=== PATIENT | male | born 1955 | race Hispanic/Latino ===

== ENCOUNTER → 2018-11-27 | Outpatient (REF) | END | disposition home or self-care (01) | DRG 951 | LOC: PAGE 09:00 | PROVIDERS: ATTEND Nurse Practitioner Family | DX: Z02.1 Encounter for pre-employment examination (principal); Z02.83 Encounter for blood-alcohol and blood-drug test ==

== ENCOUNTER 2022-09-07 15:29 | Observation (INO) | payer MEDICARE ==
[2022-09-07] VITALS (32 sets, daily range): BP systolic 104–148; BP diastolic 57–82
[~2022-09-07] VITALS: Ht 172.7 cm; Wt 109.0 kg
[~2022-09-07 15:29] MED LIST: GLIMEPIRIDE2 MG PO; LASIX 40 MG TAB40 MG PO; SPIRONOLACTONE50 MG PO; ZESTRIL10 M1 PO
--- NOTE | 2022-09-07 15:35 | NUR ---
PATIENT TO ROOM VIA WHEELCHAIR
--- NOTE | 2022-09-07 16:10 | NUR ---
PATIENT MEDICATED PER MD ORDER
[2022-09-07 16:20] LABS: HEMATOCRIT 24.4 % (39.0-50.0); HEMOGLOBIN 8.2 g/dl (14.0-18.0); IMMATURE GRANULOCYTES 0.2 % (0.0-5.0); MEAN CELL VOLUME 109.4 fL CALC (80.0-100.0); MEAN CORPUSCULAR HGB 36.8 pG CALC (26.0-32.0); MEAN CORPUSCULAR HGB CONC 33.6 g/dL CAL (32.0-36.0); NEUT# 3.55 thou/uL (1.82-7.42); RED BLOOD COUNT 2.23 mill/uL (4.70-6.10); RED CELL DISTRI WIDTH 14.8 % (11.5-15.5)
[2022-09-07 16:26] LABS: ALBUMIN 2.5 g/dL (3.2-5.0); BILIRUBIN, TOTAL 2.9 mg/dL (0.0-1.4); CREATININE 1.8 mg/dL (0.7-1.3); POTASSIUM 4.6 mmol/l (3.5-5.1); TOTAL PROTEIN 6.6 g/dL (6.3-8.2)
--- NOTE | 2022-09-07 17:10 | NUR ---
PATIENT RETURNS FROM CT IN STABLE CONDITION.
--- NOTE | 2022-09-07 17:53 | NUR ---
PATIENT RESTING ON STRETCHER, DENIES ANY PAIN. REQUESTING TO STAY AT [facility] FOR THE CRIM[facility]ALLY INSANE FOR PROCEDURE
--- NOTE | 2022-09-07 18:15 | NUR ---
MD AT BEDSIDE TO DISCUSS RESULTS AND ADMIT
--- NOTE | 2022-09-07 19:00 | NUR ---
REPORT GIVEN TO IMANI BARRAZA
--- NOTE | 2022-09-07 22:53 | NUR ---
REPORT GIVEN TO MS braden
--- NOTE | 2022-09-07 23:31 | NUR ---
REPORT GIVEN TO MS RN. PT IN NAD, UPDATED ON PLAN OF CARE.
[2022-09-07 23:44] LABS: URINE BILIRUBIN - DIPSTICK NEGATIVE (NEGATIVE); URINE BLOOD DIPSTICK NEGATIVE (NEGATIVE); URINE COLOR YELLOW; URINE GLUCOSE - DIPSTICK NEGATIVE (NEGATIVE); URINE KETONE NEGATIVE (NEGATIVE); URINE LEUK ESTERASE NEGATIVE (NEGATIVE); URINE PH 5.5 (4.5-8.0); URINE PROTEIN - DIPSTICK NEGATIVE (NEG-TRACE); URINE UROBILINOGEN - DIPSTICK 0.2 E.U./dL (0.2)
[2022-09-07 23:48] LABS: URINE NITRITE - DIPSTICK NEGATIVE (Negative)
[2022-09-08] VITALS: BP 124/79
[2022-09-08 04:00] VITALS: BP 124/79
--- NOTE | 2022-09-08 04:53 | NUR ---
PATIENT REMAINS RESTING IN BED ON HIS RIGHT SIDE WITH EYES CLOSED. NO SIGNS OF DISTRESS. NO COMPLAINTS OF PAIN. BED REMAINS IN LOW POSITION. CALL LIGHT IN REACH.
[2022-09-08 05:42] LABS: HEMATOCRIT 21.7 % (39.0-50.0); HEMOGLOBIN 7.5 g/dl (14.0-18.0); MEAN CELL VOLUME 107.4 fL CALC (80.0-100.0); MEAN CORPUSCULAR HGB 37.1 pG CALC (26.0-32.0); MEAN CORPUSCULAR HGB CONC 34.6 g/dL CAL (32.0-36.0); RED BLOOD COUNT 2.02 mill/uL (4.70-6.10); RED CELL DISTRI WIDTH 14.7 % (11.5-15.5)
[2022-09-08 06:03] LABS: INTERNATIONAL NORMALIZED RATIO 1.4 RATIO (0.7-1.3); PROTHROMBIN TIME 13.6 SECONDS (9.0-12.5)
[2022-09-08 06:06] LABS: BILIRUBIN, TOTAL 2.9 mg/dL (0.0-1.4); CREATININE 1.9 mg/dL (0.7-1.3); MAGNESIUM 2.2 mg/dL (1.6-2.3); POTASSIUM 4.6 mmol/l (3.5-5.1); TOTAL PROTEIN 5.9 g/dL (6.3-8.2)
[2022-09-08 06:52] VITALS: BP 108/60
--- NOTE | 2022-09-08 08:00 | NUR ---
RECEIVED REPORT FROM [employer] TECHNICIAN. PATIENT RESTINGIN IN BED, AWAKE, IN SEMI-FOLWERS POSITION. PT A&OX3 AND ABLE TO MAKE NEEDS KNOWN. NO SIGNS OF DISNTRESS NOTED NOR VERBALIZED AT THIS TIME. PATIENT DID STATE HAVING LITTLE PAIN ON LEFT FOOT BUT DENIED PAIN MEDICATION. ASSESSMENT COMPLETED. IV PATENT AND FLUSHES WELL. CALL LIGHT AND BEDSIDE TABLE WITHIN REACH.
[2022-09-08 10:58] VITALS: BP 105/58
[2022-09-08 10:59] VITALS: BP 105/58
--- NOTE | 2022-09-08 12:00 | NUR ---
PATIENT RESTING IN BED IN SEMI FOWLERS POSITION, AWAKE, WATCHING TV. SPOUSE IS IN THE ROOM. NO SIGNS OF DISTRESS NOTED NOR VERBALIZED AT THIS TIME. CALL LIGHT AND BEDSIDE TABLE WITHIN REACH.
[2022-09-08] MEDS ORDERED: LACTULOSE10 GM/15 M PO (13:14)
--- NOTE | 2022-09-08 16:08 | NUR ---
Discharge instructions given. Patient verbalizes understanding of same. Discharged in stable condition via Wheelchair to Home with staff. All belongings sent with pt.
--- NOTE | 2022-09-08 18:07 | NUR ---
RECEIVED REPORT FROM PAN SHOVER RN. PATIENT IS RESTING IN BED, AWAKE. SPOUSE AT BEDSIDE. PATIENT IS A&OX3 AND ABLE TO MAKE NEEDS KNOWN, NO SIGNS OF DISTRESS NOTED NOR VERBALIZED AT THIS TIME. IV IS PATENT AND FLUSHES WELL. ASSESSMENT COMPLETED. BED IN LOWEST POSITION, CALL LIGHT AND BEDSIDE TABLE WITHIN REACH.
[2022-09-08 19:00] VITALS: BP 105/58
== END 2022-09-08 16:07 | disposition home or self-care (01) ==
LOC: ED 15:29 → ED-I 18:32 → ED 18:44 → MS2 18:45
PROVIDERS: Internal Medicine; ADMIT Internal Medicine; ATTEND Internal Medicine
PROC: 0W9G3ZZ Drainage of Peritoneal Cavity, Percutaneous Approach (ICD-10-PCS; principal; 2022-09-08)
DX: K74.60 Unspecified cirrhosis of liver (principal); R18.8 Other ascites; K76.7 Hepatorenal syndrome; I10 Essential (primary) hypertension; E11.9 Type 2 diabetes mellitus without complications; Z20.822 Contact with and (suspected) exposure to COVID-19; Z01.818 Encounter for other preprocedural examination; U07.1 COVID-19; K70.31 Alcoholic cirrhosis of liver with ascites
CPT/HCPCS: P9047

== ENCOUNTER 2022-09-13 22:13 | Inpatient (IN) | payer MEDICARE ==
[~2022-09-13] VITALS: Ht 30.5 cm; Wt 99.8 kg
[~2022-09-13 22:13] MED LIST changes: +LACTULOSE10 GM/15 M PO
[2022-09-13 22:25] VITALS: BP 140/81
[2022-09-13 22:31] VITALS: BP 113/64
[2022-09-13 23:00] VITALS: BP 128/70
[2022-09-13 23:10] LABS: HEMATOCRIT 27.5 % (39.0-50.0); HEMOGLOBIN 9.3 g/dl (14.0-18.0); IMMATURE GRANULOCYTES 0.4 % (0.0-5.0); MEAN CELL VOLUME 108.3 fL CALC (80.0-100.0); MEAN CORPUSCULAR HGB 36.6 pG CALC (26.0-32.0); MEAN CORPUSCULAR HGB CONC 33.8 g/dL CAL (32.0-36.0); NEUT# 2.99 thou/uL (1.82-7.42); RED BLOOD COUNT 2.54 mill/uL (4.70-6.10)
[2022-09-13 23:15] VITALS: BP 121/68
[2022-09-13 23:25] LABS: INTERNATIONAL NORMALIZED RATIO 1.3 RATIO (0.7-1.3); PROTHROMBIN TIME 12.8 SECONDS (9.0-12.5)
[2022-09-13 23:26] LABS: ALKALINE PHOSPHATASE 651 u/l (38-126); AMYLASE 138 u/l (30-110); ANION GAP 15 (6-22 (CALC)); BILIRUBIN, TOTAL 2.9 mg/dL (0.0-1.4); BUN 27 mg/dL (8-23); BUN/CREATININE RATIO 12 (12-20 (CALC)); CARBON DIOXIDE 17 mmol/l (22-30); CHLORIDE 106 mmol/l (95-108); CREATININE 2.3 mg/dL (0.7-1.3); GFR FOR AFR.AMER. 34 ML/MIN (>=60 (CALC)); GFR OTHER RACES 28 ML/MIN (>=60 (CALC)); LIPASE 506 u/l (23-300); POTASSIUM 4.6 mmol/l (3.5-5.1); SGOT/AST 59 u/l (19-48); SODIUM 134 mmol/l (137-146)
[2022-09-13 23:27] LABS: ALBUMIN 2.7 g/dL (3.2-5.0); TOTAL PROTEIN 7.1 g/dL (6.3-8.2)
[2022-09-13 23:30] VITALS: BP 117/64
[2022-09-13 23:38] LABS: MYOGLOBIN 198 ng/mL (0 - 121)
[2022-09-14 02:50] LABS: URINE BILIRUBIN - DIPSTICK NEGATIVE (NEGATIVE); URINE BLOOD DIPSTICK NEGATIVE (NEGATIVE); URINE COLOR YELLOW; URINE GLUCOSE - DIPSTICK NEGATIVE (NEGATIVE); URINE KETONE TRACE mg/dL (NEGATIVE); URINE LEUK ESTERASE NEGATIVE (NEGATIVE); URINE PH 5.5 (4.5-8.0); URINE PROTEIN - DIPSTICK NEGATIVE (NEG-TRACE); URINE SPECIFIC GRAVITY 1.025; URINE UROBILINOGEN - DIPSTICK 0.2 E.U./dL (0.2)
[2022-09-14 02:51] LABS: URINE NITRITE - DIPSTICK NEGATIVE (Negative)
[2022-09-14 07:06] VITALS: BP 117/50
[2022-09-14 11:06] VITALS: BP 110/48
[2022-09-14 14:48] VITALS: BP 99/52
[2022-09-14 18:56] VITALS: BP 95/48
[2022-09-15] VITALS (11 sets, daily range): BP systolic 92–115; BP diastolic 43–61
[2022-09-15 06:26] LABS: IMMATURE GRANULOCYTES 0.1 % (0.0-5.0); MEAN CELL VOLUME 106.3 fL CALC (80.0-100.0); MEAN CORPUSCULAR HGB 36.5 pG CALC (26.0-32.0); MEAN CORPUSCULAR HGB CONC 34.3 g/dL CAL (32.0-36.0); NEUT# 4.84 thou/uL (1.82-7.42); RED BLOOD COUNT 1.92 mill/uL (4.70-6.10); RED CELL DISTRI WIDTH 14.9 % (11.5-15.5)
[2022-09-15 06:35] LABS: BILIRUBIN, TOTAL 2.7 mg/dL (0.0-1.4); CREATININE 2.6 mg/dL (0.7-1.3)
[2022-09-15 06:38] LABS: POTASSIUM 4.4 mmol/l (3.5-5.1)
[2022-09-15 06:42] LABS: ALBUMIN 2.1 g/dL (3.2-5.0); TOTAL PROTEIN 5.1 g/dL (6.3-8.2)
[2022-09-15 06:48] LABS: HEMATOCRIT 20.4 % (39.0-50.0)
[2022-09-16] VITALS (7 sets, daily range): BP systolic 83–116; BP diastolic 41–66
[2022-09-16 05:28] LABS: HEMATOCRIT 21.7 % (39.0-50.0); HEMOGLOBIN 7.6 g/dl (14.0-18.0); MEAN CELL VOLUME 102.8 fL CALC (80.0-100.0); RED BLOOD COUNT 2.11 mill/uL (4.70-6.10); RED CELL DISTRI WIDTH 16.9 % (11.5-15.5)
[2022-09-16 05:44] LABS: ALBUMIN 1.9 g/dL (3.2-5.0); BILIRUBIN, TOTAL 2.6 mg/dL (0.0-1.4); CREATININE 2.8 mg/dL (0.7-1.3); POTASSIUM 4.6 mmol/l (3.5-5.1); TOTAL PROTEIN 4.9 g/dL (6.3-8.2)
[2022-09-16 05:49] LABS: INTERNATIONAL NORMALIZED RATIO 1.5 RATIO (0.7-1.3); PROTHROMBIN TIME 14.6 SECONDS (9.0-12.5)
[2022-09-17 04:05] VITALS: BP 116/63
[2022-09-17 05:41] LABS: HEMATOCRIT 25.2 % (39.0-50.0); HEMOGLOBIN 8.8 g/dl (14.0-18.0); IMMATURE GRANULOCYTES 0.2 % (0.0-5.0); MEAN CELL VOLUME 103.7 fL CALC (80.0-100.0); MEAN CORPUSCULAR HGB 36.2 pG CALC (26.0-32.0); MEAN CORPUSCULAR HGB CONC 34.9 g/dL CAL (32.0-36.0); NEUT# 4.32 thou/uL (1.82-7.42); RED BLOOD COUNT 2.43 mill/uL (4.70-6.10); RED CELL DISTRI WIDTH 16.5 % (11.5-15.5)
[2022-09-17 06:08] LABS: INTERNATIONAL NORMALIZED RATIO 1.3 RATIO (0.7-1.3); PROTHROMBIN TIME 12.7 SECONDS (9.0-12.5)
[2022-09-17 06:14] LABS: ALBUMIN 2.2 g/dL (3.2-5.0); BILIRUBIN, TOTAL 2.3 mg/dL (0.0-1.4); CREATININE 2.8 mg/dL (0.7-1.3); TOTAL PROTEIN 5.6 g/dL (6.3-8.2)
[2022-09-17 06:22] LABS: POTASSIUM 5.4 mmol/l (3.5-5.1)
[2022-09-17 06:47] VITALS: BP 110/69
[2022-09-17 10:17] VITALS: BP 106/41
== END 2022-09-17 11:40 | disposition home or self-care (01) | DRG 432 ==
LOC: ED 22:13 → ED-I 09-14 02:45 → ED 09-14 03:25 → MS2 09-14 03:26
PROVIDERS: Emergency Medicine; Internal Medicine; Nurse Practitioner Family; ADMIT Internal Medicine; ATTEND Internal Medicine
PROC: 0W9G3ZZ Drainage of Peritoneal Cavity, Percutaneous Approach (ICD-10-PCS; principal; 2022-09-14)
PROC: 30233N1 Transfusion of Nonautologous Red Blood Cells into Peripheral Vein, Percutaneous Approach (ICD-10-PCS; 2022-09-15)
DX: K74.60 Unspecified cirrhosis of liver (principal); K65.2 Spontaneous bacterial peritonitis; K76.7 Hepatorenal syndrome; R18.8 Other ascites; C22.0 Liver cell carcinoma; D69.59 Other secondary thrombocytopenia; D64.9 Anemia, unspecified; E11.9 Type 2 diabetes mellitus without complications; I10 Essential (primary) hypertension; Z20.822 Contact with and (suspected) exposure to COVID-19
CPT/HCPCS: P9016; P9047

== ENCOUNTER 2022-10-09 20:07 | Observation (INO) | payer MEDICARE ==
[~2022-10-09] VITALS: Ht 172.7 cm; Wt 99.6 kg
[2022-10-09 20:31] VITALS: BP 113/62
[2022-10-09 20:53] LABS: EOS% 4.2 % (0-8); HEMATOCRIT 24.3 % (39.0-50.0); HEMOGLOBIN 8.4 g/dl (14.0-18.0); IMMATURE GRANULOCYTES 0.3 % (0.0-5.0); LYMPH% 6.1 % (15-41); MEAN CORPUSCULAR HGB 35.6 pG CALC (26.0-32.0); MEAN CORPUSCULAR HGB CONC 34.6 g/dL CAL (32.0-36.0); MONO% 11.5 % (2-13); NEUT# 4.4 thou/uL (1.82-7.42); NEUT% 76.9 % (42-76); RED BLOOD COUNT 2.36 mill/uL (4.70-6.10); RED CELL DISTRI WIDTH 16.8 % (11.5-15.5)
[2022-10-09 21:00] VITALS: BP 113/57
[2022-10-09 21:03] LABS: ALBUMIN 2.8 g/dL (3.2-5.0); BILIRUBIN, TOTAL 3.6 mg/dL (0.0-1.4); CREATININE 2.6 mg/dL (0.7-1.3); MAGNESIUM 2.2 mg/dL (1.6-2.3); TOTAL PROTEIN 7.4 g/dL (6.3-8.2)
[2022-10-09 21:04] LABS: INTERNATIONAL NORMALIZED RATIO 1.2 RATIO (0.7-1.3); PROTHROMBIN TIME 12.3 SECONDS (9.0-12.5)
[2022-10-09 21:05] LABS: POTASSIUM 5.6 mmol/l (3.5-5.1)
[2022-10-09 21:30] VITALS: BP 111/54
[2022-10-09 21:51] LABS: URINE BILIRUBIN - DIPSTICK NEGATIVE (NEGATIVE); URINE BLOOD DIPSTICK NEGATIVE (NEGATIVE); URINE COLOR YELLOW; URINE GLUCOSE - DIPSTICK NEGATIVE (NEGATIVE); URINE KETONE NEGATIVE (NEGATIVE); URINE LEUK ESTERASE NEGATIVE (NEGATIVE); URINE PH 5.5 (4.5-8.0); URINE PROTEIN - DIPSTICK NEGATIVE (NEG-TRACE); URINE SPECIFIC GRAVITY >=1.030; URINE UROBILINOGEN - DIPSTICK 0.2 E.U./dL (0.2)
[2022-10-09 21:53] LABS: URINE NITRITE - DIPSTICK NEGATIVE (Negative)
[2022-10-09 22:00] VITALS: BP 108/48
[2022-10-09 22:30] VITALS: BP 102/54
[2022-10-09 23:13] VITALS: BP 121/48
[2022-10-10 05:05] VITALS: BP 105/46
[2022-10-10 07:47] VITALS: BP 109/53
[2022-10-10 16:08] VITALS: BP 96/45
[2022-10-10 19:10] VITALS: BP 108/50
[2022-10-11] VITALS (7 sets, daily range): BP systolic 89–122; BP diastolic 58–67
[2022-10-11 04:54] LABS: BASO% 1.1 % (0-3); BILIRUBIN, TOTAL 2.2 mg/dL (0.0-1.4); CREATININE 2.5 mg/dL (0.7-1.3); EOS% 8.8 % (0-8); LYMPH% 24.2 % (15-41); MEAN CELL VOLUME 102.6 fL CALC (80.0-100.0); MEAN CORPUSCULAR HGB 36.5 pG CALC (26.0-32.0); MEAN CORPUSCULAR HGB CONC 35.5 g/dL CAL (32.0-36.0); MONO% 15.4 % (2-13); NEUT# 1.44 thou/uL (1.82-7.42); NEUT% 50.5 % (42-76); RED BLOOD COUNT 1.92 mill/uL (4.70-6.10); RED CELL DISTRI WIDTH 16.8 % (11.5-15.5)
[2022-10-11 05:01] LABS: HEMATOCRIT 19.7 % (39.0-50.0)
[2022-10-11 05:20] LABS: ALBUMIN 2.1 g/dL (3.2-5.0); TOTAL PROTEIN 5.7 g/dL (6.3-8.2)
[2022-10-11] MEDS ORDERED: ZITHROMAX250 MG PO (11:34)
[2022-10-11] MEDS ORDERED: CEFPODOXIME PR100 MG PO (11:34)
[2022-10-11] MEDS ORDERED: TAMIFLU SUSP 6MG/ML PO (11:34)
[2022-10-11] MEDS ORDERED: TAMIFLU30 MG PO (11:46)
== END 2022-10-11 15:57 | disposition home health service (06) ==
LOC: ED 20:07 → MS2 22:25
PROVIDERS: Family Medicine; Nurse Practitioner Family; ADMIT Internal Medicine; ATTEND Internal Medicine
PROC: 0W9G3ZZ Drainage of Peritoneal Cavity, Percutaneous Approach (ICD-10-PCS; 2022-10-10)
PROC: 30233N1 Transfusion of Nonautologous Red Blood Cells into Peripheral Vein, Percutaneous Approach (ICD-10-PCS; principal; 2022-10-11)
DX: J10.00 Influenza due to other identified influenza virus with unspecified type of pneumonia (principal); K70.31 Alcoholic cirrhosis of liver with ascites; K76.7 Hepatorenal syndrome; K72.10 Chronic hepatic failure without coma; I12.9 Hypertensive chronic kidney disease with stage 1 through stage 4 chronic kidney disease, or unspecified chronic kidney disease; E11.22 Type 2 diabetes mellitus with diabetic chronic kidney disease; D63.1 Anemia in chronic kidney disease; N18.4 Chronic kidney disease, stage 4 (severe); R16.0 Hepatomegaly, not elsewhere classified; Z86.16 Personal history of COVID-19; Z20.822 Contact with and (suspected) exposure to COVID-19
CPT/HCPCS: P9016

== ENCOUNTER 2022-12-02 16:53 | Emergency (ER) | payer MEDICARE ==
[~2022-12-02 16:53] MED LIST changes: +CEFPODOXIME PR100 MG PO; +TAMIFLU SUSP 6MG/ML PO; +TAMIFLU30 MG PO; +ZITHROMAX250 MG PO
== END 2022-12-02 18:55 | disposition home or self-care (01) ==
LOC: ED 16:53 → LWOBS 18:54
DX: Z53.21 Procedure and treatment not carried out due to patient leaving prior to being seen by health care provider (principal)

== ENCOUNTER 2022-12-04 19:03 | Inpatient (IN) | payer MEDICARE ==
[2022-12-04] VITALS (25 sets, daily range): BP systolic 84–109; BP diastolic 38–58
[~2022-12-04] VITALS: Ht 172.7 cm; Wt 98.2 kg
[2022-12-04 20:52] LABS: BASO% 0.1 % (0-3); HEMATOCRIT 20.3 % (39.0-50.0); IMMATURE GRANULOCYTES 0.1 % (0.0-5.0); LYMPH% 6.4 % (15-41); MEAN CORPUSCULAR HGB 33.2 pG CALC (26.0-32.0); MEAN CORPUSCULAR HGB CONC 32.5 g/dL CAL (32.0-36.0); MONO% 12.2 % (2-13); NEUT# 5.39 thou/uL (1.82-7.42); NEUT% 80.2 % (42-76); RED BLOOD COUNT 1.99 mill/uL (4.70-6.10); RED CELL DISTRI WIDTH 18.7 % (11.5-15.5)
[2022-12-04 20:57] LABS: HEMOGLOBIN 6.6 g/dl (14.0-18.0)
[2022-12-04 21:01] LABS: ALBUMIN 2.4 g/dL (3.2-5.0); BILIRUBIN, TOTAL 3.1 mg/dL (0.2-1.3); CREATININE 3.4 mg/dL (0.7-1.3); TOTAL PROTEIN 5.9 g/dL (6.3-8.2)
[2022-12-04 21:04] LABS: DIRECT BILIRUBIN 0.2 mg/dl (0.0-0.3); POTASSIUM 5.8 mmol/l (3.5-5.1)
[2022-12-04 21:16] LABS: ACT PARTIAL THROMBO TIME 40.9 SECONDS (20.0-32.5); INTERNATIONAL NORMALIZED RATIO 1.6 RATIO (0.7-1.3); PROTHROMBIN TIME 15.5 SECONDS (9.0-12.5)
[2022-12-05] VITALS (104 sets, daily range): BP systolic 76–113; BP diastolic 35–67
[2022-12-05 09:53] LABS: ALBUMIN 2.1 g/dL (3.2-5.0); CREATININE 3.9 mg/dL (0.7-1.3); POTASSIUM 5.1 mmol/l (3.5-5.1); TOTAL PROTEIN 5.3 g/dL (6.3-8.2)
[2022-12-05 09:56] LABS: BILIRUBIN, TOTAL 4.6 mg/dL (0.2-1.3)
[2022-12-05 10:11] LABS: HEMATOCRIT 22.9 % (39.0-50.0); HEMOGLOBIN 7.5 g/dl (14.0-18.0); MEAN CELL VOLUME 98.3 fL CALC (80.0-100.0); MEAN CORPUSCULAR HGB 32.2 pG CALC (26.0-32.0); MEAN CORPUSCULAR HGB CONC 32.8 g/dL CAL (32.0-36.0); RED BLOOD COUNT 2.33 mill/uL (4.70-6.10); RED CELL DISTRI WIDTH 20.5 % (11.5-15.5)
[2022-12-06] VITALS (27 sets, daily range): BP systolic 74–125; BP diastolic 37–69
[2022-12-06 05:39] LABS: HEMATOCRIT 22.4 % (39.0-50.0); HEMOGLOBIN 7.5 g/dl (14.0-18.0); MEAN CELL VOLUME 97.4 fL CALC (80.0-100.0); MEAN CORPUSCULAR HGB 32.6 pG CALC (26.0-32.0); MEAN CORPUSCULAR HGB CONC 33.5 g/dL CAL (32.0-36.0); RED BLOOD COUNT 2.3 mill/uL (4.70-6.10); RED CELL DISTRI WIDTH 20.6 % (11.5-15.5)
[2022-12-06 05:41] LABS: ALBUMIN 2.1 g/dL (3.2-5.0); BILIRUBIN, TOTAL 3.1 mg/dL (0.2-1.3); CREATININE 3.9 mg/dL (0.7-1.3); MAGNESIUM 2.4 mg/dL (1.6-2.3); POTASSIUM 5.5 mmol/l (3.5-5.1); TOTAL PROTEIN 5.4 g/dL (6.3-8.2)
[2022-12-06 20:53] LABS: URINE BILIRUBIN - DIPSTICK NEGATIVE (NEGATIVE); URINE BLOOD DIPSTICK NEGATIVE (NEGATIVE); URINE CLARITY CLEAR; URINE COLOR YELLOW; URINE GLUCOSE - DIPSTICK NEGATIVE (NEGATIVE); URINE KETONE TRACE mg/dL (NEGATIVE); URINE LEUK ESTERASE NEGATIVE (Negative); URINE NITRITE - DIPSTICK NEGATIVE (Negative); URINE PH 5.5 (4.5-8.0); URINE PROTEIN - DIPSTICK NEGATIVE (NEG-TRACE); URINE SPECIFIC GRAVITY 1.025; URINE UROBILINOGEN - DIPSTICK 0.2 E.U./dL (0.2)
[2022-12-07] VITALS (24 sets, daily range): BP systolic 75–137; BP diastolic 39–72
[2022-12-07 05:37] LABS: HEMATOCRIT 21.4 % (39.0-50.0); HEMOGLOBIN 7.2 g/dl (14.0-18.0); MEAN CELL VOLUME 96.4 fL CALC (80.0-100.0); MEAN CORPUSCULAR HGB 32.4 pG CALC (26.0-32.0); MEAN CORPUSCULAR HGB CONC 33.6 g/dL CAL (32.0-36.0); RED BLOOD COUNT 2.22 mill/uL (4.70-6.10); RED CELL DISTRI WIDTH 20.3 % (11.5-15.5)
[2022-12-07 06:04] LABS: BILIRUBIN, TOTAL 2.6 mg/dL (0.2-1.3); CREATININE 3.9 mg/dL (0.7-1.3); MAGNESIUM 2.4 mg/dL (1.6-2.3); POTASSIUM 4.4 mmol/l (3.5-5.1); TOTAL PROTEIN 4.8 g/dL (6.3-8.2)
[2022-12-08] VITALS (16 sets, daily range): BP systolic 85–125; BP diastolic 40–68
[2022-12-08 06:52] LABS: HEMATOCRIT 21.5 % (39.0-50.0); HEMOGLOBIN 7.4 g/dl (14.0-18.0); MEAN CELL VOLUME 94.3 fL CALC (80.0-100.0); MEAN CORPUSCULAR HGB 32.5 pG CALC (26.0-32.0); MEAN CORPUSCULAR HGB CONC 34.4 g/dL CAL (32.0-36.0); RED BLOOD COUNT 2.28 mill/uL (4.70-6.10); RED CELL DISTRI WIDTH 20.2 % (11.5-15.5)
[2022-12-08 07:09] LABS: ALBUMIN 1.9 g/dL (3.2-5.0); CREATININE 4.1 mg/dL (0.7-1.3); POTASSIUM 3.8 mmol/l (3.5-5.1)
[2022-12-08 07:10] LABS: BILIRUBIN, TOTAL 3.1 mg/dL (0.2-1.3); CREATININE 4.2 mg/dL (0.7-1.3); MAGNESIUM 2.3 mg/dL (1.6-2.3); POTASSIUM 3.8 mmol/l (3.5-5.1)
[2022-12-08] MEDS ORDERED: CIPROFLOXACN500 MG PO (14:22)
== END 2022-12-08 16:30 | disposition home or self-care (01) | DRG 871 ==
LOC: ED 19:03 → ICU 12-05 02:18 → ED-I 12-05 02:18 → MS2 12-05 06:28 → ICU 12-05 07:00
PROVIDERS: Emergency Medicine; Internal Medicine Nephrology; ADMIT Internal Medicine; ATTEND Internal Medicine
PROC: 30233N1 Transfusion of Nonautologous Red Blood Cells into Peripheral Vein, Percutaneous Approach (ICD-10-PCS; principal; 2022-12-04)
PROC: 02HV33Z Insertion of Infusion Device into Superior Vena Cava, Percutaneous Approach (ICD-10-PCS; 2022-12-05)
PROC: 0W9G3ZZ Drainage of Peritoneal Cavity, Percutaneous Approach (ICD-10-PCS; 2022-12-05)
DX: A41.9 Sepsis, unspecified organism (principal); K65.2 Spontaneous bacterial peritonitis; K76.7 Hepatorenal syndrome; N17.0 Acute kidney failure with tubular necrosis; R18.8 Other ascites; E87.20 Acidosis, unspecified; E87.1 Hypo-osmolality and hyponatremia; C22.0 Liver cell carcinoma; R65.20 Severe sepsis without septic shock; I95.9 Hypotension, unspecified; I12.9 Hypertensive chronic kidney disease with stage 1 through stage 4 chronic kidney disease, or unspecified chronic kidney disease; E11.22 Type 2 diabetes mellitus with diabetic chronic kidney disease; N18.9 Chronic kidney disease, unspecified; K74.60 Unspecified cirrhosis of liver; K72.10 Chronic hepatic failure without coma; E87.5 Hyperkalemia; E86.9 Volume depletion, unspecified; B96.89 Other specified bacterial agents as the cause of diseases classified elsewhere; D63.8 Anemia in other chronic diseases classified elsewhere; D69.59 Other secondary thrombocytopenia
CPT/HCPCS: J0692; J3370; P9016; P9047